=== PATIENT | female | born 1965 | race Caucasian/White ===

== ENCOUNTER 2022-11-28 13:29 | Observation (INO) | payer OTHER ==
[~2022-11-28] VITALS: Ht 165.1 cm; Wt 99.8 kg
[2022-11-28 14:26] LABS: BASOPHILS PERCENT AUTO 1 % (0-2); EOSINOPHILS ABSOLUTE AUTO 0.02 K/mm3 (0.00-0.68); EOSINOPHILS PERCENT AUTO 0 % (0-6); Hematocrit 44.3 % (33.0-51.0); Hemoglobin 14.9 g/dL (11.5-16.0); IMMATURE GRAN ABSOLUTE AUTO 0.04 K/mm3 (0.00-0.10); IMMATURE GRAN PERCENT AUTO 0 % (0-1); LYMPHOCYTES PERCENT AUTO 30 % (21-46); MONOCYTES ABSOLUTE AUTO 0.72 K/mm3 (0.16-1.47); MONOCYTES PERCENT AUTO 7 % (4-13); Mean Corpuscular HGB 31.7 pg (26.0-34.0); Mean Corpuscular HGB Conc 33.6 g/dL (31.5-36.5); Mean Corpuscular Volume 94 fL (80-100); Mean Platelet Volume 10.3 fL (9.1-12.4); NEUTROPHILS ABSOLUTE AUTO 6.24 K/mm3 (1.96-9.15); NEUTROPHILS PERCENT AUTO 62 % (41-73); Platelet Count 226 K/mm3 (150-400); RDW Coefficient Variation 12.3 % (11.7-14.2); RDW Standard Deviation 43.3 fL (35.1-46.3); White Blood Cell Count 10.12 K/mm3 (4.00-11.30)
[2022-11-28 15:00] LABS: Ethanol (Alcohol), Blood, Med <3 mg/dL; Salicylate <1.7 mg/dL (2.8-20.0)
[2022-11-28 15:04] LABS: Acetaminophen, Random <2.0 ug/mL (10.0-30.0); Alanine Aminotransfer (ALT/SGP 49 U/L (12-78); Albumin, Blood 3.9 g/dL (3.4-5.0); Albumin/Globulin Ratio 1.1 (0.8-1.8); Alk Phos 114 U/L (50-136); Anion Gap 4 mmol/L (6-16); Aspartate Aminotrans (AST/SGOT 41 U/L (12-37); Bilirubin, Total 0.9 mg/dL (0.1-1.0); Blood Urea Nitrogen 9 mg/dL (8-24); Bun/Creatinine Ratio 14.2 (12.0-20.0); CO2, Blood 27 mmol/L (21-32); Calcium, Blood 9.5 mg/dL (8.5-10.1); Chloride, Blood 110 mmol/L (98-108); Creatinine, Blood 0.63 mg/dL (0.40-1.00); Globulin, Blood 3.5 g/dL (2.2-4.0); Glomerular Filtration Rate 102 (60-); Glucose, Blood 119 mg/dL (70-99); Potassium, Blood 4.1 mmol/L (3.5-5.5); Sodium, Blood 141 mmol/L (136-145); Total Protein, Blood 7.4 g/dL (6.4-8.2)
[2022-11-28 15:27] LABS: Source, Urine Clean Catch
[2022-11-28 15:44] LABS: Appearance, Urine Clear (Clear); Bilirubin, Urine Neg (Neg); Blood, Urine Neg (Neg); Color, Urine Yellow (P-Yellow); Glucose Qualitative, Urine Neg (Neg); Ketones, Urine Neg (Neg); Leukocyte Esterase, Urine Neg (Neg); Nitrite, Urine Neg (Neg); Protein, Urine Neg (Neg); Specific Gravity, Urine 1.015 (1.003-1.022); Urobilinogen, Urine NORM (Normal)
[2022-11-28 16:18] LABS: U Amphetamine Screen Not Detected; U Barbituate Screen Not Detected; U Benzodiazapine Screen Not Detected; U Buprenorphine Screen Not Detected; U Cannabinoids Screen Not Detected; U Cocaine Screen Not Detected; U Methadone Screen Not Detected; U Methamphetamine Screen Not Detected; U Opiates Screen Not Detected; U Oxycodone Screen Not Detected; U Phencyclidine Screen Not Detected; U Propoxyphene Screen Not Detected
[2022-11-28] MEDS ORDERED: GABA300 PO (20:29)
[2022-11-28] MEDS ORDERED: RAMELTEON8 MG PO (20:30)
[2022-11-28] MEDS ORDERED: TIOT18 INH (20:30)
[2022-11-28] MEDS ORDERED: ABILIFY MYCITE15 M2 PO (20:30)
[2022-11-28] MEDS ORDERED: ALBU90OI INH (20:30)
[2022-11-28] MEDS ORDERED: FOLI1 PO (20:30)
[2022-12-02] MEDS ORDERED: ABILIFY MYCITE20 M2 PO (11:01)
[2022-12-02 12:24] VITALS: BP 141/93
== END 2022-12-03 05:58 | disposition home or self-care (01) ==
LOC: ER 13:29 → EOR 19:03
PROVIDERS: Physician Assistant; ADMIT Student in an Organized Health Care Education/Training Program
DX: F20.9 Schizophrenia, unspecified (principal); Z79.899 Other long term (current) drug therapy
CPT/HCPCS: 80053; 81003; 81025; 85025; 86592; 93005; 93010; 99285-25; A9270; G0378; G0480

== ENCOUNTER 2023-10-05 20:32 | Emergency (ER) | payer OTHER ==
[~2023-10-05] VITALS: Ht 170.2 cm; Wt 122.5 kg
[~2023-10-05 20:32] MED LIST: ABILIFY MYCITE15 M2 PO; ABILIFY MYCITE20 M2 PO; ALBU90OI INH; FOLI1 PO; GABA300 PO; RAMELTEON8 MG PO; TIOT18 INH
[2023-10-05] MEDS ORDERED: LORazepam 2 MG/ML 1ML Injection IV ONE (22:00)
[2023-10-05 22:22] LABS: BASOPHILS ABSOLUTE AUTO 0.07 K/mm3 (0.00-0.23); BASOPHILS PERCENT AUTO 1 % (0-2); EOSINOPHILS ABSOLUTE AUTO 0.05 K/mm3 (0.00-0.68); EOSINOPHILS PERCENT AUTO 1 % (0-6); Hematocrit 43.5 % (33.0-51.0); Hemoglobin 14.7 g/dL (11.5-16.0); IMMATURE GRAN ABSOLUTE AUTO 0.02 K/mm3 (0.00-0.10); IMMATURE GRAN PERCENT AUTO 0 % (0-1); LYMPHOCYTES ABSOLUTE AUTO 2.93 K/mm3 (0.84-5.20); LYMPHOCYTES PERCENT AUTO 32 % (21-46); MONOCYTES ABSOLUTE AUTO 0.65 K/mm3 (0.16-1.47); MONOCYTES PERCENT AUTO 7 % (4-13); Mean Corpuscular HGB Conc 33.8 g/dL (31.5-36.5); Mean Corpuscular Volume 95 fL (80-100); Mean Platelet Volume 10.1 fL (9.1-12.4); NEUTROPHILS ABSOLUTE AUTO 5.39 K/mm3 (1.96-9.15); NEUTROPHILS PERCENT AUTO 59 % (41-73); Platelet Count 242 K/mm3 (150-400); RDW Coefficient Variation 12.3 % (11.7-14.2); Red Blood Cell Count 4.59 M/mm3 (3.80-5.20); White Blood Cell Count 9.11 K/mm3 (4.00-11.30)
[2023-10-05 22:37] LABS: Bun/Creatinine Ratio 19.4 (12.0-20.0); Calcium, Blood 9.6 mg/dL (8.5-10.1); Creatinine, Blood 0.67 mg/dL (0.40-1.00); Potassium, Blood 4.1 mmol/L (3.5-5.5)
[2023-10-05] MEDS ORDERED: IBUP600 PO (22:39)
[2023-10-05] MEDS ORDERED: ABILIFY5 MG PO (22:40)
[2023-10-05 23:51] LABS: Source, Urine Clean Catch
[2023-10-05 23:54] LABS: Bilirubin, Urine Neg (Neg); Blood, Urine Neg (Neg); Glucose Qualitative, Urine Neg (Neg); Ketones, Urine 1+ (Neg); Leukocyte Esterase, Urine Neg (Neg); Nitrite, Urine Neg (Neg); Protein, Urine 1+ (Neg); Specific Gravity, Urine 1.025 (1.003-1.022); Urobilinogen, Urine 2+ (Normal)
[2023-10-05 23:59] LABS: Appearance, Urine Clear (Clear); Color, Urine Yellow (P-Yellow)
[2023-10-06] MEDS ORDERED: Melatonin 5 MG Tablet PO ONE (00:10)
[2023-10-06 00:41] VITALS: BP 118/70
== END 2023-10-06 00:41 | disposition home or self-care (01) ==
LOC: ER 20:32
PROVIDERS: Emergency Medicine
DX: G47.00 Insomnia, unspecified (principal); F20.9 Schizophrenia, unspecified; Z79.899 Other long term (current) drug therapy
CPT/HCPCS: 80048; 85025; 96374; 99283-25; A9270; J2060

== ENCOUNTER → 2024-03-02 | Outpatient (CLI) | payer OTHER ==
[~2024-03-02] MED LIST changes: +ABILIFY5 MG PO; +IBUP600 PO
[2024-03-04 10:31] LABS: Stool Occult Bld Immuno 1 Negative (NEGATIVE)
== END ==
LOC: LAB 19:55 → LAB SHORT 19:55
PROVIDERS: Family Medicine
DX: Z12.11 Encounter for screening for malignant neoplasm of colon (principal)
CPT/HCPCS: G0328

== ENCOUNTER → 2024-05-13 | Outpatient (CLI) | payer OTHER ==
[2024-05-20 16:19] LABS: HPV HIGH RISK BY TMA Not Detected; HPV SOURCE Cervical
== END ==
LOC: LAB 11:37 → LAB SHORT 11:37
PROVIDERS: Advanced Practice Midwife
DX: Z01.419 Encounter for gynecological examination (general) (routine) without abnormal findings (principal)
CPT/HCPCS: 87624; G0123

== ENCOUNTER 2024-07-12 23:55 | Observation (INO) | payer OTHER ==
[~2024-07-12] VITALS: Ht 175.3 cm; Wt 90.7 kg
[2024-07-13 00:48] LABS: BASOPHILS ABSOLUTE AUTO 0.06 K/mm3 (0.00-0.23); BASOPHILS PERCENT AUTO 1 % (0-2); EOSINOPHILS ABSOLUTE AUTO 0.01 K/mm3 (0.00-0.68); EOSINOPHILS PERCENT AUTO 0 % (0-6); Hematocrit 44.5 % (33.0-51.0); Hemoglobin 14.9 g/dL (11.5-16.0); IMMATURE GRAN ABSOLUTE AUTO 0.04 K/mm3 (0.00-0.10); IMMATURE GRAN PERCENT AUTO 0 % (0-1); LYMPHOCYTES ABSOLUTE AUTO 1.79 K/mm3 (0.84-5.20); LYMPHOCYTES PERCENT AUTO 14 % (21-46); MONOCYTES ABSOLUTE AUTO 0.68 K/mm3 (0.16-1.47); MONOCYTES PERCENT AUTO 5 % (4-13); Mean Corpuscular HGB 31.2 pg (26.0-34.0); Mean Corpuscular HGB Conc 33.5 g/dL (31.5-36.5); Mean Corpuscular Volume 93 fL (80-100); Mean Platelet Volume 9.8 fL (9.1-12.4); NEUTROPHILS ABSOLUTE AUTO 10.14 K/mm3 (1.96-9.15); NEUTROPHILS PERCENT AUTO 80 % (41-73); Platelet Count 234 K/mm3 (150-400); RDW Coefficient Variation 12.5 % (11.7-14.2); Red Blood Cell Count 4.77 M/mm3 (3.80-5.20); White Blood Cell Count 12.72 K/mm3 (4.00-11.30)
[2024-07-13 01:16] LABS: Albumin, Blood 3.8 g/dL (3.4-5.0); Bilirubin, Total 1.2 mg/dL (0.1-1.0); Bun/Creatinine Ratio 13.1 (12.0-20.0); Calcium, Blood 9.4 mg/dL (8.5-10.1); Creatinine, Blood 0.76 mg/dL (0.40-1.00); Free Thyroxine 1.38 ng/dL (0.70-1.60); Globulin, Blood 3.7 g/dL (2.2-4.0); Potassium, Blood 3.7 mmol/L (3.5-5.5); Thyroid Stimulating Hormone 2.33 uIU/mL (0.360-4.800); Total Protein, Blood 7.5 g/dL (6.4-8.2); Triiodothyronine, Free 2.66 pg/mL (2.18-3.98)
[2024-07-13] MEDS ORDERED: OLANZapine 10 MG Vial IM ONE (02:15)
[2024-07-13] MEDS ORDERED: OLANZapine 10 MG Tab PO ONE (02:15)
[2024-07-13] MEDS ORDERED: NS 1,000 ML IV SCH (02:45)
[2024-07-13 03:54] LABS: Source, Urine Straight Cath
[2024-07-13 04:04] LABS: Bilirubin, Urine Neg (Neg); Blood, Urine Neg (Neg); Glucose Qualitative, Urine Neg (Neg); Ketones, Urine 4+ (Neg); Leukocyte Esterase, Urine Neg (Neg); Nitrite, Urine Neg (Neg); Protein, Urine 2+ (Neg); Urobilinogen, Urine 2+ (Normal)
[2024-07-13 04:07] LABS: Appearance, Urine Hazy (Clear); Color, Urine Yellow (P-Yellow)
[2024-07-13 04:09] LABS: U Amphetamine Screen Not Detected; U Barbituate Screen Not Detected; U Benzodiazapine Screen Not Detected; U Buprenorphine Screen Not Detected; U Cannabinoids Screen Not Detected; U Cocaine Screen Not Detected; U Methadone Screen Not Detected; U Methamphetamine Screen Not Detected; U Opiates Screen Not Detected; U Oxycodone Screen Not Detected; U Phencyclidine Screen Not Detected
[2024-07-13 04:12] LABS: Amorphous Light (0-Heavy); Bacteria Few /hpf; Mucus Light (0-Heavy); Red Blood Cells, Urine Not Seen /hpf (0-2); Squamous Epithelial Cells Few /hpf (Few); White Blood Cells, Urine 0-2 /hpf (0-5)
[2024-07-13] MEDS ORDERED: Haloperidol 5 MG Tab PO ONE (07:00)
[2024-07-13 09:14] VITALS: BP 162/78
[2024-07-13] MEDS ORDERED: Loratadine10 MG PO (14:40)
[2024-07-13] MEDS ORDERED: Atarax10 MG PO (14:41)
== END 2024-07-13 09:36 | disposition other institution (70) ==
LOC: ER 23:55 → EOR 23:56
PROVIDERS: ADMIT Student in an Organized Health Care Education/Training Program
DX: F20.9 Schizophrenia, unspecified (principal); D72.829 Elevated white blood cell count, unspecified; I10 Essential (primary) hypertension; Z79.899 Other long term (current) drug therapy
CPT/HCPCS: 71046; 80053; 81001; 82140; 83690; 83880; 84439; 84443; 84481; 84484; 85025; 99285-25; A9270; G0378; J7030

== ENCOUNTER 2024-07-13 08:11 | Inpatient (IN) | payer OTHER ==
[~2024-07-13] VITALS: Ht 170.2 cm; Wt 110.8 kg
[2024-07-13] MEDS ORDERED: LORazepam 2 MG/ML 1ML Injection IM PRN (09:25)
[2024-07-13] MEDS ORDERED: DiphenhydrAMINE HCl 50 MG/ML 1ML Vial IM PRN (09:25)
[2024-07-13] MEDS ORDERED: DiphenhydrAMINE HCl 50 MG Cap PO PRN (09:25)
[2024-07-13] MEDS ORDERED: Aluminum Hydroxide 320MG/5ML 473 ML PO PRN (09:25)
[2024-07-13] MEDS ORDERED: Acetaminophen 325 MG TABLET PO PRN (09:25)
[2024-07-13] MEDS ORDERED: LORazepam 2 MG Tab PO PRN (09:25)
[2024-07-13] MEDS ORDERED: Calcium Carbonate 500 MG Tab Chew PO PRN (09:25)
[2024-07-13] MEDS ORDERED: Haloperidol Lactate Inj. 5 MG/ML Injection IM PRN (09:25)
[2024-07-13] MEDS ORDERED: TraZODone HCl 50 MG Tab PO PRN (09:30)
[2024-07-13] MEDS ORDERED: Melatonin 3 MG Tab PO PRN (09:30)
[2024-07-13] MEDS ORDERED: Haloperidol 5 MG Tab PO PRN (09:30)
[2024-07-13] MEDS ORDERED: Polyethylene Glycol 3350 17 gm PO PRN (09:30)
[2024-07-13] MEDS ORDERED: Ondansetron 4 MG SoluTab MM PRN (09:30)
[2024-07-13] MEDS ORDERED: Ibuprofen 600 MG Tab PO PRN (09:30)
[2024-07-13] MEDS ORDERED: HydrOXYzine Pamoate 50 MG Cap PO PRN (09:30)
[2024-07-13] MEDS ORDERED: OLANZapine ODT 10 MG Tab MM PRN (09:35)
[2024-07-13 09:45] VITALS: BP 122/80
[2024-07-13 11:11] VITALS: BP 122/80
[2024-07-13] MEDS ORDERED: Loratadine10 MG PO (14:40)
[2024-07-13] MEDS ORDERED: Atarax10 MG PO (14:41)
[2024-07-13] MEDS ORDERED: Albuterol HFA200 ACT/6.7 GM INH INH PRN (15:20)
[2024-07-13] MEDS ORDERED: Nicotine 14 MG PATCH TOP SCH (15:21)
[2024-07-13] MEDS ORDERED: Tiotropium Bromide 2.5 MCG/ACT MIST INHAL (10 ACT/4 GM) INH SCH (15:25)
[2024-07-13] MEDS ORDERED: Zolpidem Tartrate 5 MG Tab PO PRN (15:25)
[2024-07-13] MEDS ORDERED: PredniSONE 20 MG Tab PO SCH (16:00)
[2024-07-13] MEDS ORDERED: ARIPiprazole 10 MG Tab PO SCH (17:00)
--- NOTE | 2024-07-13 17:19 | NUR ---
SHIFT SUMMARY/ADMISSION NOTE PT AxOx3 WITH INTERMITTENT CONFUSION AND PARANOID DELUSIONS. PT ARRIVED TO U FROM [facility] ED AT APPROX 0939. PT HAS BEEN PLEASANT AND COOPERATIVE WITH CARE BUT REQUIRES REDIRECTION OFTEN TO STAY ON TASK OR REMINDERS OF WHAT TO DO. PT IS ON AN INVOLUNTARY HOLD AT THIS TIME. ADMISSION COMPLETED, INCLUDING SIGNED FORMS. HOSPITALIST WAS CONSULTED FOR EDEMA IN DAJA EXTREMITIES AND EXPIRATORY WHEEZING IN BILATERAL LOBES. PT REPORTS HX OF COPD WITHOUT O2 SUPPLEMENT NEEDS. PT REPORTED PAIN IN LEGS THIS SHIFT AND WAS MEDICATED x1 WITH REPORTED RELIEF. MEDICATION LIST WAS OBTAINED FROM CURRENT PROVIDER, DR LI AT [facility] AND MEDICATIONS WERE RECONCILED. PT IS CURRENTLY SITTING IN [place]IGHT IN CHAIR, DENIES ANY NEEDS AT THIS TIME. THIS RN SPOKE WITH PATIENT'S SON, KELSEY AND DAUGHTER IN LAW, ANDRE THIS SHIFT. UPDATED THEM ON PLAN OF CARE. THE FAMILY STATED THEY WERE UNAWARE THAT SHE WAS BROUGHT INTO THE HOSPITAL. THEY ALSO REPORTED THAT SHE HAS BEEN WORSENING FAR COGNITIVE DECLINE IN THE PAST YEAR AND THEY THINK SHE MAY NEED BIOINFORMATICIAN PLACEMENT. THIS RN REASSURED THEM THAT WE WILL RELAY THE INFORMATION TO OUR INTEGRATED MARKETING MANAGER WHEN SHE IS BACK.
[2024-07-13 20:25] VITALS: BP 151/90
[2024-07-13] MEDS ORDERED: Amoxicillin 500 MG Cap PO SCH (21:00)
--- NOTE | 2024-07-14 05:50 | NUR ---
SHIFT SUMMARY Pt is A&O self, day, and location; calm, cooperative; eye contact is appropriate. Pt stated that her mood was better, affect is blunted. Pt denies SI, HI, and hallucinations. Her speech is rambling at times and thought process is somewhat disorganized. But, pt was able to correctly give the day (but not date) and location ([facility] [place]). Pt was very worried about about my doggie, I left him at home and I m worried about him. Pt has 2+ pitting edema in her LEs. Pt spent the evening sleeping in her room, but did get up for evening meds and snack. Pt was out of bed at about 0130, stating that she could no longer sleep. Pt requested to sit in the sensory room to read. Pt complained of SOB and received PRN albuterol at about 0145. She returned to her room about 0215. She was up at about 0530 complaining of back ache and received PRN ibuprofen. Pt is on q15m safety checks per unit protocol.
[2024-07-14] MEDS ORDERED: Pantoprazole Sodium 20 MG Tab PO SCH (06:00)
--- NOTE | 2024-07-14 06:05 | NUR ---
SHIFT SUMMARY ADDENDUM at about 0550 pt was at nurse station somewhat agitated and anxious. Pt took PRN hydroxyzine at about 0600 and then sat in the sensory room with another staff member.
[2024-07-14 07:32] LABS: CHOL/HDL RATIO 3.6; Cholesterol 153 mg/dL (50-200); HDL Cholesterol 42 mg/dL (>39); LDL/HDL RATIO 2.3; Low Density Lipoprotein Chol 97 mg/dL (0-110); Triglycerides 72 mg/dL (30-160); Very Low Density Lipoprot Chol 14 mg/dL (6-32)
[2024-07-14 07:47] VITALS: BP 133/78
[2024-07-14] MEDS ORDERED: Loratadine 10 MG Tab PO SCH (09:00)
[2024-07-14] MEDS ORDERED: Multivitamins 1 Tab PO SCH (09:00)
[2024-07-14] MEDS ORDERED: Folic Acid 1 MG TAB PO SCH (09:00)
--- NOTE | 2024-07-14 18:12 | NUR ---
SHIFT SUMMARY PT A/O TO SELF, PERSON, AND SITUATION. SHE DENIES SI, HI, BUT IS UNSURE WHETHER OR NOT SHE IS HAVING HALLUCINATIONS. SHE IS COOPERATIVE WITH CARE AND ATTENDED ALL GROUPS AND MEALS. HER FAMILY VISITED THIS AFTERNOON AND THE VISIT WENT WELL. SHE CONTINUES TO HAVE 1-2 PITTING EDEMA TO HER BLE AND LUNG SOUNDS ARE COARSE IN THE UPPER LOBES.
[2024-07-14 19:28] VITALS: BP 141/76
--- NOTE | 2024-07-15 04:22 | NUR ---
SHIFT SUMMARY: PATIENT WAS WANDERING IN THE HALLWAY AT THE BEGINNING OF THE SHIFT. SHE SPOKE TO SEVERAL STAFF MEMBERS, BUT SHE WAS MUMBLING AND IT WAS HARD TO ASCERTAIN WHAT SHE WANTED. SHE GOT SOME BOOKS AND WAS CARRYING THEM UP AND DOWN THE WRIGHT, FINALLY PUTTING THEM IN THE SENSORY ROOM. SHE STATED, "I NEVER SLEEP, I HAVEN'T FOR YEARS". SHE DENIED SUICIDAL IDEATION OR THOUGHTS OF SELF HARMING. SHE HAD NO APPARENT A/V HALLUCINATIONS. SHE PARTICIPATED IN SNACK AT 2030, AND WAS COMPLIANT WITH EVENING MEDICATIONS, ALTHOUGH SHE STATED, "THESE MEDICINES WON'T HELP. I NEVER SLEEP." SHE STAYED UP FOR A TIME AFTER SNACK, AND WENT IN AND OUT OF THE SENSORY ROOM. SHE THEN STARTED GOING IN AND OUT OF HER ROOM. AT 2250, SHE WAS GIVEN AMBIEN DUE TO HER COMPLAINT THAT SHE HAS "NO WAY OF SLEEPING". SHE THEN WENT BACK TO HER ROOM, BUT WAS UP AGAIN ALMOST IMMEDIATELY. SHE WAS IN AND OUT OF THE SENSORY ROOM, SITTING IN THE CHAIR FOR A MOMENT, THEN GETTING UP AND WANDERING BACK DOWN THE WRIGHT. HER GAIT WAS UNSTEADY, AND IT WAS SUGGESTED THAT SHE TRY TO REST. SHE WENT TO HER ROOM AGAIN FOR A TIME.SHE WAS UP AGAIN AT 2314, STATING THAT SHE HADN'T SLEPT, AND WANTING MORE MEDICATION. UPON ASSESSMENT, IT WAS DISCERNED THAT SHE HAD "RESTLESS LEGS". SHE STATED, "IBUPROFEN HELPS" SO WAS GIVEN IBUPROFEN AT THAT TIME. SHE WENT IN AND OUT OF THE SENSORY ROOM AGAIN, BUT WENT BACK TO HER ROOM AT THE SUGGESTION THAT SHE LIE DOWN. AT 0045, SHE WAS AWAKE IN HER ROOM, AND THEN CAME OUT. SHE STATED THAT SHE WAS "FRUSTRATED" BECAUSE "I NEVER SLEEP AND IT MAKES ME MAD". SHE RATED HER FRUSTRATION AT 8/10, AND WAS GETTING A BIT LOUDER. SHE WAS GIVEN A ZYPREXA AT 0100, AND ASKED TO GO LIE DOWN DUE TO THE SEDATING EFFECT. SHE DID GO LIE DOWN, BUT CONTINUED TO GET UP AND DOWN AND HAD TO BE CUED TO GO BACK AND LIE DOWN. SHE THEN STATED THAT SHE HADN'T HAD A BOWEL MOVEMENT IN A WEEK. SHE WAS REMINDED THAT AT ASSESSMENT, SHE STATED SHE HAD ONE TODAY (07/14/24) TO WHICH SHE AGREED. SHE STATED THAT SHE FELT "CONSTIPATED". SHE WAS TOLD THAT SHE WOULD BE OFFERED MIRALAX AT 0600 MED PASS, SHE DID NOT WANT TO BE UP AND DOWN ON THE TOILET. SHE WAS THEN TOLD THAT SHE SHOULD GO LIE DOWN DUE TO POSSIBLE SEDATION EFFECT OF THE MEDICATIONS SHE HAD TAKEN. SHE DID GO LIE DOWN, BUT GOT UP A COUPLE MORE TIMES TO OPEN THE DOOR. SHE CAME OUT ONCE, AND TRIED TO GO IN THE WRONG ROOM, BUT WAS REDIRECTED. SHE HAS BEEN IN BED, MOSTLY APPEARING ASLEEP, SINCE 0302. CONTINUING TO MONITOR FOR SAFETY WITH Q15 MINUTE CHECKS.
[2024-07-15 07:52] VITALS: BP 134/77
--- NOTE | 2024-07-15 17:26 | NUR ---
SHIFT SUMMARY PT A/O X3 PLEASANT AND COOPERATIVE WITH CARE. SHE DENIES SI AND HI. PT DOES REPORT SOME AUDITORY HALLUCINATIONS. SHE REPORTED THAT SHE DOES HAVE AUDITORY HALLUCINATIONS. PT SAYS THAT SHE WILL SOMETIMES HEAR VOICES AND STATIC. SHE HAS 2+ PITTING EDEMA TO HER BLE. PT OFFERED LARGER SOCKS AND ENCOURAGED TO ELEVATE HER FEET. PT IS FORGETFUL AND NEEDS FREQUENT REMINDERS. SHE PARTICIPATED IN ALL GROUPS AND MEALS.
[2024-07-15 19:43] VITALS: BP 136/74
--- NOTE | 2024-07-15 23:18 | NUR ---
MID SHIFT SUMMARY FOR REPORT OFF: PT HAS HAD AN UNEVENTFUL EVENING. RECEIVED IBUPROFEN FOR C/O LOW BACK PAIN EARLIER IN SHIFT AND REPORTED GOOD RESULTS. REVIEWED MEDICATION MANAGEMENT WITH PATIENT FOR EVENING AND SHE REQUESTED MEDS FOR SLEEP BUT WANTED TO WAIT FOR AMBIEN TO BE GIVEN "LATER" IN CASE SHE WOKE UP. PT CONTINUES TO HAVE 2+ EDEMA TO BILATER LOWER LEGS FROM SHINS TO TOES. NON PITTING DURING ASSESSMENT BUT DOES HAVE INDENTATION FROM SOCKS. BRISK CAP REFILL AND PPP. PT STATES HER ANKLES SWELL "ANYTIME I HAVE SALT." NO OTHER COMPLAINTS OR NEEDS EXPRESSED. CONTINUE 15 MINUTE CHECKS FOR SAFETY.
--- NOTE | 2024-07-16 04:25 | NUR ---
SHIFT SUMMARY (FROM 0030 WHEN THIS RN TOOK OVER CARE): PATIENT HAS BEEN UP AND DOWN A FEW TIMES. THE FIRST TIME, SHE ASKED FOR HER AMBIEN, WHICH WAS GIVEN. PATIENT HAS ORDERS FOR TRAZODONE AND AMBIEN, AND WANTS THEM BOTH EACH EVENING. SHE GOT UP AGAIN AT 0425 AND WANTED MIRALAX, STATING "I HAVEN'T GONE IN DAYS". SHE HAD A DOCUMENTED ACCIDENT 07/15/24, AND SHE STATED DURING ASSESSMENT THAT SHE HAD GONE. SHE WILL BE TOLD THAT IT ISN'T A GOOD IDEA WHEN YOU AREN'T CONSTIPATED. SHE WILL BE GIVEN PROTONIX SCHEDULED THIS MORNING. SHE PRESENTS IN THE PAST FEW DAYS A PATIENT WHO COMES BACK AND FORTH TO TAKE ONE MEDICATION AT A TIME, WANTING TO USE EVERYTHING SHE HAS WITHOUT THE ACCOMPANYING SYMPTOMS. FOR EXAMPLE, COMING TO ASK FOR AMBIEN WHEN SHE IS SHUFFLING HER FEET AND CAN BARELY OPEN HER EYES, AND COMING TO GET MIRALAX WHEN SHE'S HAD AT LEAST ONE BOWEL MOVEMENT IN THE LAST 24 HOURS. WILL CONTINUE TO MONITOR THIS SITUATION. SHE IS STILL GETTING UP SOON SHE IS SLIGHTLY AWAKE, INSTEAD OF LYING STILL AND TRYING TO FALL BACK ASLEEP. THIS IS AFFECTING HER REST. SHE REQUIRES A LOT OF GENTLE CUES TO GO BACK TO HER ROOM AND REST, WHICH SHE NEEDS TO DO BECAUSE HER GAIT IS UNSTEADY, PARTICULARLY WHEN SHE IS MOSTLY ASLEEP. CONTINUING TO MONITOR FOR SAFETY WITH Q15 MINUTE CHECKS.
[2024-07-16 09:15] VITALS: BP 123/65
--- NOTE | 2024-07-16 09:43 | NUR ---
SHIFT ASSESSMENT: PT DENIED SI, HI AND AVH. SHE ENDORSED ANXIETY 2/10w AND LOW BACK PAIN 7/10w. SHE REPORTED HER MOOD , "IT'S REALLY UPBEAT TODAY." PT ASKED FOR SEVERAL CLOTHING ITEMS AND SAID, "IF I HAVE THEM NOW I WON'T HAVE TO BUG YOU LATER." PT IS PLEASANT AND COOPERATIVE WITH CARE.
--- NOTE | 2024-07-16 17:40 | NUR ---
PT HAS BEEN IN GROUPS AND ON THE PERIPHERY OF THE MILIEU, "I DON'T WANT TO INTERUPT THE OTHERS CONVERSATIONS." SHE WAS URGED TO GO INTO THE TV ROOM AND OUT ONTO THE SOCRATES BUT REMAINED IN THE HALLWAY. SHE HAS REMAINED PLEASANT AND COOPERATIVE THIS AFTERNOON, SHE HAS BEEN INDEPENDENT AND NOT NEEDED MAN ITEMS. NO ATTENTION SEEKING BEHAVIORS.
[2024-07-16 19:29] VITALS: BP 144/69
--- NOTE | 2024-07-17 04:36 | NUR ---
SHIFT SUMMARY: PATIENT WAS MORE AWARE THIS SHIFT. SHE WAS ABLE TO ANSWER QUESTIONS IN A REASONABLE MANNER, ALTHOUGH SHE ACTED CONFUSED AT TIMES. SHE, FOR EXAMPLE, STATED SHE'D HAD "AT LEAST ONE BOWEL MOVEMENT" TODAY, THEN LATER STATED THAT SHE HADN'T HAD ONE AND WANTED MIRALAX. SHE KNEW WHO SHE WAS AND WHO THE RN WAS, UNSURE OF DATE OR TIME OR PLACE. SHE WAS ABLE TO TALK ABOUT HER SON AND DAUGHTER IN LAW, AND THAT SHE BELIEVES SHE IS "ON THE WAITING LIST AT [facility]". SHE WANDERED AROUND THE UNIT, AND SPENT SOME TIME IN THE SENSORY ROOM AND SOME TIME IN HER ROOM. SHE STATED THAT SHE ENJOYS HER NEW ROOMMATE. SHE PARTICIPATED IN SNACK TIME AT 2030, AND WAS COMPLIANT WITH EVENING MEDICATIONS. SHE DENIED SUICIDAL IDEATION AND THOUGHTS OF SELF HARMING. SHE WAS UNSURE ABOUT A/V HALLUCINATIONS, BUT ENDED UP SHAKING HER HEAD NO, DENYING THEM. SHE WAS UP AND DOWN FOR A TIME AFTER SHE WENT TO HER ROOM. SHE WANTED MORE MEDICATIONS BUT SEEMED UNSURE TO HER SYMPTOMS. SHE DID LATER STATE THAT SHE HAD A LOWER BACK ACHE AND WANTED IBUPROFEN, WHICH WAS GIVEN WITH HER SECOND TRAZODONE. THE COMBINATION OF VISTARIL, MELATONIN, TRAZODONE, AND THEN A SECOND TRAZODONE AN HOUR LATER SEEMED TO WORK FOR HER, AND SHE HAS MOSTLY BEEN IN BED RESTING WITH EYES CLOSED AND RESPIRATIONS CONFIRMED. CONTINUING TO MONITOR FOR SAFETY WITH Q15 MINUTE CHECKS.
[2024-07-17 09:00] VITALS: BP 137/85
--- NOTE | 2024-07-17 16:23 | NUR ---
SHIFT SUMMARY PT WAS AWAKE AND UP AT START OF SHIFT. SHE HAS PARTICIPATED IN ALL MEALS AND GROUP MEETINGS. SHE DENIES SI/HI/AVH. SHE HAD WHAT SOUNDED LIKE A GOOD CONVERSATION WITH HER SON ON THE PHONE. NICHOLE COMPLETED A MoCA TEST ON THIS PT AND HER RESULTS WILL BE CHARTED BY HER. PT HAD TO ASK FOR A CHANGE OF PANTS ONE TIME DURING THIS SHIFT AND SHE APOLOGIZED FOR IT. PT HAS RECEIVED Q15 MIN VISUAL SAFETY CHECKS THROUGHOUT THIS SHIFT
--- NOTE | 2024-07-17 16:30 | NUR ---
The [place] Cognitive Assessment (MoCA 8.1) was completed per Dr. Wright's request. Results are as follows: Visuospacial/Executive: 04/15 Namin/3 Attention: 02/12, 02/11, 02/13 Language: 2, 02/11 Abstraction: 2 Memory/Delayed Recall: 05/16 Orientation: 6 Total Score: 21/30 (falls within the mild cognitive impairment range as indicated below). MoCA Scoring Range: Normal Score: 26/30 Mild Cognitive Impairment: 18-25 Moderate Cognitive Impairment: 10-17 Severe Cognitive Impairment: less than 10
[2024-07-17 20:00] VITALS: BP 140/67
--- NOTE | 2024-07-18 05:19 | NUR ---
SHIFT SUMMARY PATIENT SITTING IN ROOM ANSWERING ALL QUESTIONS APPROPRIATELY. VERBALIZED THAT SHE IS WANTING TO HAVE THE DOCTOR ORDER SOMETHING FOR HER BLADDER TO HELP WITH STRESS INCONTINENCE AND STOOL SOFTENERS . DENIES SI, HI, OR VH. VERBALIZED THAT SHE DOES HAVE AUDITORY HALLUCINATIONS AT TIMES, HEARING VOICES "IN THE WHITE NOISE" THAT COME AND GO FOR YEARS. COOPERATIVE WITH PO MEDICATIONS. SLEEPING OFF AND ON T/O NIGHT. AT 0040 2ND DOSE OF TRAZODONE GIVEN. PATIENT APPEARS TO BE SLEEPING NOW WITH RESP EVEN AND UNLABORED. CONTINUE TO MONITOR Q15MIN
[2024-07-18 06:57] VITALS: BP 115/66
--- NOTE | 2024-07-18 16:15 | NUR ---
SHIFT SUMMARY PT HAS BEEN IN THE [facility] ALL SHIFT, ENGAGED, COOPERATIVE AND POLITE. SHE WILL D/C TOMORROW PER DR CASTANEDA. SHE CONTINUES TO DENY SI/HI/AVH AND HAS HAD Q15 MIN CHECKS THROUGHOUT THE SHIFT
[2024-07-18 19:48] VITALS: BP 149/76
--- NOTE | 2024-07-19 04:45 | NUR ---
SHIFT SUMMARY: PATIENT WAS IN THE MILIEU AT THE BEGINNING OF THE SHIFT, COLORING A PAPER WITH A COW ON IT TO TAKE HOME. SHE WAS QUITE EXCITED TO SHARE, "I'M GOING HOME TOMORROW." HER SON CALLED AND STATED THAT HE WILL PICK HER UP ON 07/19/24. SHE WAS CONCERNED THAT A TIME WASN'T SET, AND WAS ASSURED THAT STAFF WILL ENSURE HER DISCHARGE SHE WAS TOLD. SHE WAS PLEASANT AND COOPERATIVE WITH CARES. SHE HAD AN EPISODE OF INCONTINENCE AND ASKED FOR NEW SCRUBS. SHE WAS KIND AND PATIENT WITH HER ROOMMATE. SHE DENIED SI, HI, A/V HALLUCINATIONS AND THOUGHTS OF SELF HARMING. SHE PARTICIPATED IN SNACK TIME AT 2030 IN THE DINING AREA, AND FILLED OUT HER WRAP UP FORM. SHE WAS COMPLIANT WITH EVENING MEDICATIONS. AFTER SNACK, SHE WENT TO HER ROOM AND WAS NOTED TO BE RESTING IN BED WITH EYES CLOSED AND RESPIRATIONS CONFIRMED FOR THE REMAINDER OF THE SHIFT. CONTINUING TO MONITOR FOR SAFETY WITH Q15 MINUTE CHECKS.
[2024-07-19 07:10] VITALS: BP 146/105
--- NOTE | 2024-07-19 14:06 | NUR ---
DISCHARGE SUMMARY PT DC FROM [facility] AT 1354, ALL BELONGINGS WERE RETURNED. SHE WENT HOME IN FRESH CLOTHES FROM HOME BROUGHT IN BY HER SON. PT WAS ENCOURAGED TO TRY AND UP HER PCP APPT TO [facility] INSTEAD OF TWO MONTHS FROM NOW. ALSO TO SCHEDULE APPT WITH REGINA DELGADILLO WHO IS HER MENTAL HEALTH PROVIDER, [facility]. SHE HASN'T SEEN REGINA IN APPROX 3 MONTHS PER PT. SCRIPT WAS SENT TO [facility] PER PT REQUEST.
== END 2024-07-19 13:54 | disposition home or self-care (01) | DRG 885 ==
LOC: BHU 08:11
PROVIDERS: ADMIT Psychiatry & Neurology Psychiatry
DX: F20.9 Schizophrenia, unspecified (principal); J44.1 Chronic obstructive pulmonary disease with (acute) exacerbation; F17.210 Nicotine dependence, cigarettes, uncomplicated; Z79.899 Other long term (current) drug therapy
CPT/HCPCS: 36415; 80061; 83036; 93005; 93010; A9270; J2470; J7512

== ENCOUNTER 2024-11-14 09:56 | Emergency (ER) | payer OTHER ==
[~2024-11-14] VITALS: Ht 167.6 cm; Wt 120.2 kg
[~2024-11-14 09:56] MED LIST changes: +Atarax10 MG PO; +Loratadine10 MG PO
[2024-11-14 10:03] VITALS: BP 150/87
[2024-11-14] MEDS ORDERED: LORazepam 2 MG/ML 1ML Injection IM ONE (10:30)
[2024-11-14 10:46] LABS: Source, Urine Clean Catch
[2024-11-14 10:51] LABS: Bilirubin, Urine Neg (Neg); Glucose Qualitative, Urine Neg (Neg); Ketones, Urine 1+ (Neg); Leukocyte Esterase, Urine Neg (Neg); Protein, Urine 1+ (Neg); Specific Gravity, Urine 1.010 (1.003-1.022); Urobilinogen, Urine NORM (Normal)
[2024-11-14 10:54] LABS: Color, Urine Yellow (P-Yellow)
[2024-11-14 11:02] LABS: U Amphetamine Screen Not Detected; U Barbituate Screen Not Detected; U Benzodiazapine Screen Not Detected; U Buprenorphine Screen Not Detected; U Cannabinoids Screen Not Detected; U Cocaine Screen Not Detected; U Methadone Screen Not Detected; U Methamphetamine Screen Not Detected; U Opiates Screen Not Detected; U Oxycodone Screen Not Detected; U Phencyclidine Screen Not Detected
[2024-11-14 11:06] LABS: BASOPHILS ABSOLUTE AUTO 0.08 K/mm3 (0.00-0.23); BASOPHILS PERCENT AUTO 1 % (0-2); EOSINOPHILS ABSOLUTE AUTO 0.02 K/mm3 (0.00-0.68); EOSINOPHILS PERCENT AUTO 0 % (0-6); Hematocrit 46.1 % (33.0-51.0); Hemoglobin 15.9 g/dL (11.5-16.0); IMMATURE GRAN ABSOLUTE AUTO 0.02 K/mm3 (0.00-0.10); IMMATURE GRAN PERCENT AUTO 0 % (0-1); LYMPHOCYTES ABSOLUTE AUTO 2.53 K/mm3 (0.84-5.20); LYMPHOCYTES PERCENT AUTO 27 % (21-46); MONOCYTES ABSOLUTE AUTO 0.53 K/mm3 (0.16-1.47); MONOCYTES PERCENT AUTO 6 % (4-13); Mean Corpuscular HGB Conc 34.5 g/dL (31.5-36.5); Mean Corpuscular Volume 93 fL (80-100); NEUTROPHILS ABSOLUTE AUTO 6.23 K/mm3 (1.96-9.15); NEUTROPHILS PERCENT AUTO 66 % (41-73); NRBC ABSOLUTE 0.00 K/mm3 (0.00-0.02); NRBC Auto 0.0 /100 WBC (0.0-0.2); Platelet Count 279 K/mm3 (150-400); RDW Coefficient Variation 12.9 % (11.7-14.2); RDW Standard Deviation 44.0 fL (35.1-46.3)
[2024-11-14 11:16] LABS: Alanine Aminotransfer (ALT/SGP 45 U/L (12-78); Albumin, Blood 4.0 g/dL (3.4-5.0); Albumin/Globulin Ratio 1.0 (0.8-1.8); Anion Gap 7 mmol/L (3-11); Aspartate Aminotrans (AST/SGOT 36 U/L (12-37); Bilirubin, Total 0.8 mg/dL (0.1-1.0); Blood Urea Nitrogen 11 mg/dL (8-24); CO2, Blood 28 mmol/L (21-32); Calcium, Blood 9.6 mg/dL (8.5-10.1); Chloride, Blood 105 mmol/L (98-108); Creatinine, Blood 0.61 mg/dL (0.40-1.00); Ethanol (Alcohol), Blood, Med <3 mg/dL; Globulin, Blood 3.9 g/dL (2.2-4.0); Glucose, Blood 120 mg/dL (70-99); Potassium, Blood 4.4 mmol/L (3.5-5.5); Sodium, Blood 136 mmol/L (136-145); Total Protein, Blood 7.9 g/dL (6.4-8.2)
== END 2024-11-14 12:01 | disposition home or self-care (01) ==
LOC: ER 09:56
PROVIDERS: Emergency Medicine
DX: G47.00 Insomnia, unspecified (principal)
CPT/HCPCS: 36415; 80053; 80320; 85025; 99283; A9270